=== PATIENT | male | born 1980 | race Caucasian/White ===

== ENCOUNTER 2020-12-10 22:24 | Emergency (ER) | payer SELFPAY ==
[~2020-12-10] VITALS: Ht 170.2 cm; Wt 84.0 kg
[2020-12-10 22:24] VITALS: BP 128/85
--- NOTE | 2020-12-10 22:37 | PHYS DOC ---
Past History Past Medical History Patient is a poor historian secondary to intoxication. Past Surgical History Patient is a poor historian secondary to intoxication Smoking: Non-smoker Alcohol Use: Occasionally Social History Patient is a poor historian secondary to intoxication General Adult EDM: Chief Complaint: Fall, syncope HPI: HPI: Patient is a 40 year old male that presents to the ED, via EMS, after a mechanical fall out of bed vs "passing out". Patient states approximately 30 minutes prior to arrival, the pt fell 3 feet out of bed. Patient is a poor histo carlitos secondary to intoxication with K2, which he used 1 hour prior to arrival. Patient is unclear of the events surrounding the fall, but denies hitting his head or LOC after the fall. Pt denies any neck pain or headaches. Patient was able to get up after falling and call EMS. Unknown how long he was on the floor, but he stated "not long." He states he just feels sleepy, and denies any chest pain, SOB, blurry vision, back pain, neck pain. No other complaints or symptoms at this time. Patient is a poor historian secondary to intoxication Review of Systems: Review of Systems: Constitutional: Denies fever or chills Eyes: Denies redness or eye pain HENT: Denies nasal congestion or sore throat Respiratory: Denies cough or shortness of breath Cardiovascular: Denies chest pain or palpitations GI: Denies abdominal pain, nausea, or vomiting Musculoskeletal: Denies neck pain Integument: Denies laceration Neurologic: Denies headache, focal weakness or sensory changes Patient is a poor historian secondary to intoxication Physical Exam: PE: Constitutional: Well developed, well nourished, no acute distress, non-toxic appearance HENT: Normocephalic, atraumatic. No reed sign. TMs clear, no otorrhea or rhinorrhea Eyes: PERRL, EOMI, conjunctiva normal, no discharge. No periorbital ecchymosis Neck: Normal range of motion, no midline tenderness, supple Lungs & Thorax: No respiratory distress, equal chest rise and fall Abdomen: Soft, no tenderness Skin: Warm, dry, no erythema, no rash Back: No tenderness, no CVA tenderness Extremities: No tenderness, ROM intact, no edema Neurologic: Alert and oriented X 3, normal motor function, normal sensory function, no focal deficits noted Psychologic: Affect flat EKG: EKG: Time: 2237 Impression: sinus rhythm, with a heart rate of 78 bmp. [place] interval of 146, and a QT/QTc of 406/451. Course & Med Decision Making: Course & Med Decision Making Pertinent Labs and Imaging studies reviewed. (See chart for details) Patient is a 40 year old male who presented to the ED after a fall from about 3 feet. Patient is a poor historian on arrival secondary to intoxication from K2. Plan to allow patient to be clinically sober and reassess. Labs obtained and posted to chart. Patient neurologically intact. No indication for imaging at this time. EKG stable. VS stable. Patient stable for discharge with outpatient follow-up with PCP. Discussed findings and plan with patient, who acknowledges understanding and agreement. Meenu Disclaimer: Meenu Disclaimer: This electronic medical record was generated, in whole or in part, using a voice recognition dictation system. Departure Departure: Impression: Primary Impression: Syncope Qualified Codes: R55 - Syncope and collapse Additional Impressions: Drug abuse Lactic acidosis Disposition: 01 DC HOME SELF CARE/HOMELESS Condition: IMPROVED Patient Instructions: Alcohol and Drug Addiction, Finding Treatment, Drug Abuse, FAQs, Lactic Acid, Lactate, Syncope, [id number]-Dayn SUSIE WILBURN DO Dec 10, 2020 22:37
[2020-12-10] MEDS ORDERED: IV NORMAL SALINE 1,000ML 1,000 ML IV ONE (22:45)
[2020-12-10 23:07] LABS: CALCIUM 8.8 mg/dL (8.5-10.1); GFR 83.6; POTASSIUM 3.4 mmol/L (3.5-5.1)
[2020-12-10 23:12] LABS: BASO # 0.1 x10^3/uL (0.0-0.2); BASO % 1 % (0-3); EOS # 0.2 x10^3/uL (0.0-0.7); EOS % 3 % (0-3); HEMATOCRIT 47.1 % (39.0-53.0); HEMOGLOBIN 16.8 g/dL (13.0-17.5); LYMPH % 35 % (24-48); MEAN CORPUSCULAR HEMOGLOBIN 31 pg (25-35); MEAN CORPUSCULAR HGB CONC 36 g/dL (31-37); MEAN CORPUSCULAR VOLUME 87 fL (79-100); MONO # 0.7 x10^3/uL (0.0-1.1); MONO % 9 % (0-9); NEUT # 4.6 x10^3uL (1.8-7.7); NEUT % 53 % (31-73); PLATELET COUNT 251 x10^3/uL (140-400); RED BLOOD COUNT 5.43 x10^6/uL (4.30-5.70); RED CELL DISTRIBUTION WIDTH 13.4 % (11.5-14.5); WHITE BLOOD COUNT 8.7 x10^3/uL (4.0-11.0)
[2020-12-10 23:23] LABS: ALBUMIN 4.1 g/dL (3.4-5.0); ALBUMIN/GLOBULIN RATIO 1.3 (1.0-1.7); MAGNESIUM 2.2 mg/dL (1.8-2.4); TOTAL BILIRUBIN 0.6 mg/dL (0.2-1.0); TOTAL PROTEIN 7.3 g/dL (6.4-8.2)
--- NOTE | 2020-12-10 23:27 | EKG ---
[address] [address] Test Date: 2020-12-10 Test Time: 22:38:33 Pat Name: AL TORRES Department: Room: Gender: M Wide [employer]: : 1980 Requested By: SUSIE WILBURN Order Number: [id number] Reading MD: Measurements Intervals [place] Rate: 73 P: 37 [place]: 146 QRS: 24 QRSD: 96 T: -1 QT: 406 QTc: 451 Interpretive Statements SINUS RHYTHM R-S TRANSITION ZONE IN V LEADS DISPLACED TO THE LEFT QRS(T) CONTOUR ABNORMALITY CONSIDER INFERIOR MYOCARDIAL DAMAGE POSSIBLY ABNORMAL ECG RI6.02 No previous ECG available for comparison
[2020-12-11 01:22] LABS: BILIRUBIN,URINE NEG (NEG); CLARITY,URINE CLEAR; COLOR,URINE YELLOW; GLUCOSE,URINE NEG (NEG); UROBILINOGEN,URINE 0.2 mg/dL (0.2 mg/dL)
[2020-12-11 01:23] LABS: BACTERIA,URINE 0 /HPF (0-FEW); BARBITURATES NEG (NEG); BENZODIAZEPINES NEG (NEG); CANNABINOIDS NEG (NEG); COCAINE NEG (NEG); METHADONE NEG (NEG); NITRITE,URINE NEG (NEG); OPIATES NEG (NEG); PHENCYCLIDINE NEG (NEG); RBC,URINE RARE /HPF (0-2); SQUAMOUS EPITHELIAL CELL,UR OCC /LPF; WBC,URINE RARE /HPF (0-4)
[2020-12-11 01:24] LABS: AMPHETAMINE/METHAMPHETAMINE NEG (NEG)
== END 2020-12-11 01:48 | disposition home or self-care (01) ==
LOC: ER 22:24
DX: R55 Syncope and collapse (principal); F12.10 Cannabis abuse, uncomplicated; E87.2 Acidosis; W06.XXXA Fall from bed, initial encounter; Y93.89 Activity, other specified; Y92.89 Other specified places as the place of occurrence of the external cause; Y99.8 Other external cause status
CPT/HCPCS: 36415; 80053; 80307; 81001; 82553; 83605; 83735; 84484; 85025; 93005; 96360; 99284; G0480; J7030

== ENCOUNTER 2021-01-13 17:48 | Emergency (ER) | payer OTHER ==
[~2021-01-13] VITALS: Ht 170.2 cm; Wt 84.0 kg
--- NOTE | 2021-01-13 18:30 | PHYS DOC ---
Past History Past Medical History: No Pertinent History (MANJIT LENZ APRN) Past Surgical History: No Surgical History (MANJIT LENZ APRN) Smoking: Non-smoker Alcohol Use: Occasionally Social History Narrative: K2 (MANJIT LENZ APRN) General Adult EDM: Chief Complaint: SUBSTANCE ABUSE HPI: HPI: Patient is a 40-year-old male who was found in the bathroom at the [facility] after ingesting K2. Patient states he remembers taking K2 and then being told EMS was coming to get him. Staff said that patient was being aggressive an d altered. Staff reports patient fell and hit his head. Patient is alert and oriented on arrival to the emergency room. Patient has an abrasion to his upper lip and right ear. Patient denies any pain. Patient denies any other health history (MANJIT LENZ APRN) Review of Systems: Review of Systems: Constitutional: Denies fever or chills Eyes: Denies change in visual acuity HENT: Denies nasal congestion or sore throat Respiratory: Denies cough or shortness of breath Cardiovascular: Denies chest pain or edema GI: Denies abdominal pain, nausea, vomiting, bloody stools or diarrhea : Denies dysuria Musculoskeletal: Denies back pain or joint pain Integument: Abrasion to upper lip and right ear Neurologic: Denies headache, focal weakness or sensory changes Endocrine: Denies polyuria or polydipsia Lymphatic: Denies swollen glands Psychiatric: Denies depression or anxiety (MANJIT LENZ APRN) Allergies: Allergies: Allergies Coded Allergies Type Severity Reaction Last Updated Verified No Known Drug Allergies 12/10/20 No (MANJIT LENZ APRN) Physical Exam: PE: Constitutional: Well developed, well nourished, no acute distress, non-toxic appearance. [] HENT: Normocephalic, atraumatic, bilateral external ears normal, oropharynx moist, no oral exudates, nose normal. [] Eyes: PERRLA, EOMI, conjunctiva normal, no discharge. [] Neck: Normal range of motion, no tenderness, supple, no stridor. [] Cardiovascular:Heart rate regular rhythm, no murmur [] Lungs & Thorax: Bilateral breath sounds clear to auscultation [] Abdomen: Bowel sounds normal, soft, no tenderness, no masses, no pulsatile masses. [] Skin: Warm, dry, abrasion upper lip, right ear Back: No tenderness, no CVA tenderness. [] Extremities: No tenderness, no cyanosis, no clubbing, ROM intact, no edema. [] Neurologic: Alert and oriented X 3, normal motor function, normal sensory function, no focal deficits noted. [] Psychologic: Affect normal, judgement normal, mood normal. [] (MANJIT LENZ APRN) Current Patient Data: Vital Signs: Vital Signs Date Time Temp Pulse Resp B/P (MAP) Pulse Ox O2 Delivery O2 Flow Rate FiO2 01/13/21 17:53 98.1 91 16 107/63 (78) 95 Room Air (MANJIT LENZ APRN) EKG: EKG: [] (MANJIT LENZ APRN) Radiology/Procedures: Radiology/Procedures: []XR CHEST 1V Clinical Indication: Reason: fall / Comparison: None. Findings: The cardiomediastinal silhouette is normal. Lungs are clear. There is no pneumothorax. No pleural effusion is appreciated. No acute bone abnormality. IMPRESSION: No acute cardiopulmonary process. Electronically signed by: Austen Garzon MD (01/13/2021 6:51 PM) [facility] Exam: CT head and cervical spine without contrast INDICATION: Fall TECHNIQUE: Sequential axial images through the head and cervical spine were obtained without the administration of IV contrast. Comparisons: None FINDINGS: Head: No focal parenchymal lesion or hemorrhage is identified. There is no midline shift or sulcal effacement. No acute vascular territory infarction is identified. Pham-white distinction is preserved. The ventricular system is within normal limits without compression hydrocephalus. The basal cisterns are well maintained. The visualized portions of the paranasal sinuses and mastoid air cells are well-pneumatized. No acute fractures. Cervical spine: Straightening of cervical spine which may positional. Vertebral body heights are well-maintained. Fracture to the cervical spine is not identified. No significant spondylotic change in cervical spine. Visualized paraspinal soft tissues are unremarkable. IMPRESSION: 1. No acute intracranial abnormality. 2. Negative CT C-spine for acute traumatic injury. Exposure: One or more of the following in the visualized dose reduction techniques were utilized for this examination: 1. Automated exposure control 2. Adjustment of the MA and/or KV according to patient size Use of iterative of reconstructive technique Electronically signed by: Karin Garcia MD (01/13/2021 6:55 PM) [facility] (MANJIT LENZ APRN) Heart Score: Risk Factors: Risk Factors: DM, Current or recent (<one month) smoker, HTN, HLP, family history of CAD, obesity. Risk Scores: Score 0 - 3: 2.5% MACE over next 6 weeks - Discharge Home Score 4 - 6: 20.3% MACE over next 6 weeks - Admit for Clinical Observation Score 7 - 10: 72.7% MACE over next 6 weeks - Early Invasive Strategies (MANJIT LENZ APRN) Course & Med Decision Making: Course & Med Decision Making Pertinent Labs and Imaging studies reviewed. (See chart for details) Patient is a 40-year-old male who was found in the bathroom at the [facility] after ingesting K2. Patient states he remembers taking K2 and then being told EMS was coming to get him. Staff said that patient was being aggressive and altered. Staff reports patient fell and hit his head. Patient is alert and oriented on arrival to the emergency room. Patient has an abrasion to his upper lip and right ear. Patient denies any pain. Patient denies any other health history Chest x-ray negative for any acute abnormalities. CT cervical spine and head negative for fracture or bleeding. Labs unremarkable. Patient discharged to home. Patient had an adverse reaction to using the substance K2. Patient is hemodynamically stable and all imaging and lab work are negative. Patient is able to ambulate on his own and is able to be discharged from the ER. Patient is told to return with worsening symptoms or concerns (MANJIT LENZ APRN) Course & Med Decision Making Did not see or evaluate patient. Agree with [facility]'s work-up and disposition per note. (ALLI DIAS MD) Dragon Disclaimer: Dragon Disclaimer: This electronic medical record was generated, in whole or in part, using a voice recognition dictation system. (MANJIT LENZ APRN) Departure Departure: Impression: Primary Impression: Overdose Qualified Codes: T50.904A - Poisoning by unspecified drugs, medicaments and biological substances, undetermined, initial encounter Disposition: 01 DC HOME SELF CARE/HOMELESS Condition: STABLE Referrals: PCP,NO (PCP) Patient Instructions: Overdose, Adult Additional Instructions: EMERGENCY DEPARTMENT GENERAL DISCHARGE INSTRUCTIONS Thank you for coming to [facility] (ED) today and trusting us with you care. We trust that you had a positivie experience in our Emergency Department. If you wish to speak to the department management, you may call the director at [phone]. YOUR FOLLOW UP INSTRUCTIONS ARE FOLLOWS: 1. Do you have a private Doctor? If you do not have a private doctor, please ask for a resource list of physicians or clinics that may be able to assist you with follow up care. 2. The Emergency Physician has interpreted your x-rays. The X-Ray specialist will also review them. If there is a change in the findings, you will be notified in 48 hours when at all possible. 3. A lab test or culture has been done, your results will be reviewed and you will be notified if you need a change in treatment. ADDITIONAL INSTRUCTIONS AND INFORMATION: 1. Your care today has been supervised by a physician who is specially trained in emergency care. Many problems require more than one evaluation for a complete diagnosis and treatment. We recommend that you schedule your follow up appointment as recommended to ensure complete treatment of you illness or injury. If you are unable to obtain follow up care and continue to have a problem, or if your condition worsens, we recommend that you return to the ED. 2. We are not able to safely determine your condition over the phone nor are we able to give sound medical advice over the phone. For these safety reasons, if you call for medical advice we will ask you to come to the ED for further evaluation. 3. If you have any questions regarding these discharge instructions please call the ED at [phone]. SAFETY INFORMATION: In the interest of safety, wellness, and injury prevention; we encourage you to wear your sealbelt, if you smoke; quite smoking, and we encourage family to use a protective helmet for bicycling and other sporting events that present an increased risk for head injury. IF YOUR SYMPTOMS WORSEN OR NEW SYMPTOMS DEVELOP, OR YOU HAVE CONCERNS ABOUT YOUR CONDITION; OR IF YOUR CONDITION WORSENS WHILE YOU ARE WAITING FOR YOUR FOLLOW UP APPOINTMENT; EITHER CONTACT YOUR PRIMARY CARE DOCTOR, THE PHYSICIAN WHOSE NAME AND NUMBER YOU WERE GIVEN, OR RETURN TO THE ED IMMEDIATELY. MANJIT LENZ APRN Jan 13, 2021 18:30 ALLI DIAS MD Jan 17, 2021 18:25
--- NOTE | 2021-01-13 18:54 | RAD ---
XR CHEST 1V Clinical Indication: Reason: fall / Comparison: None. Findings: The cardiomediastinal silhouette is normal. Lungs are clear. There is no pneumothorax. No pleural eff usion is appreciated. No acute bone abnormality. IMPRESSION: No acute cardiopulmonary process. Electronically signed by: Austen Garzon MD (01/13/2021 6:51 PM) [facility]
--- NOTE | 2021-01-13 18:57 | RAD ---
Exam: CT head and cervical spine without contrast INDICATION: Fall TECHNIQUE: Sequential axial images through the head and cervical spine were obtained without the admi nistration of IV contrast. Comparisons: None FINDINGS: Head: No focal parenchymal lesion or hemorrhage is identified. There is no midline shift or sulcal effaceme nt. No acute vascular territory infarction is identified. Pham-white distinction is preserved. The ventricular system is within normal limits without compression hydrocephalus. The basal cisterns are well maintained. The visualized portions of the paranasal sinuses and mastoid air cells are well-pneumatized. No acute fractures. Cervical spine: Straightening of cervical spine which may positional. Vertebral body heights are well-maintained. Fracture to the cervical spine is not identified. No significant spondylotic change in cervical spine. Visualized paraspinal soft tissues are unremarkable. IMPRESSION: 1. No acute intracranial abnormality. 2. Negative CT C-spine for acute traumatic injury. Exposure: One or more of the following in the visualized dose reduction techniques were utilized for this examination: 1. Automated exposure control 2. Adjustment of the MA and/or KV according to patient size Use of iterative of reconstructive technique Electronically signed by: Karin Garcia MD (01/13/2021 6:55 PM) [id number]
[2021-01-13 19:06] LABS: BASO # 0.1 x10^3/uL (0.0-0.2); BASO % 1 % (0-3); EOS # 0.3 x10^3/uL (0.0-0.7); EOS % 4 % (0-3); HEMATOCRIT 45.3 % (39.0-53.0); HEMOGLOBIN 15.6 g/dL (13.0-17.5); LYMPH # 1.1 x10^3/uL (1.0-4.8); LYMPH % 19 % (24-48); MEAN CORPUSCULAR HEMOGLOBIN 31 pg (25-35); MEAN CORPUSCULAR HGB CONC 35 g/dL (31-37); MEAN CORPUSCULAR VOLUME 89 fL (79-100); MONO # 0.6 x10^3/uL (0.0-1.1); MONO % 10 % (0-9); NEUT % 66 % (31-73); PLATELET COUNT 201 x10^3/uL (140-400); RED CELL DISTRIBUTION WIDTH 13.1 % (11.5-14.5); WHITE BLOOD COUNT 6.1 x10^3/uL (4.0-11.0)
[2021-01-13 19:15] LABS: CALCIUM 8.7 mg/dL (8.5-10.1); CREATININE 1.1 mg/dL (0.7-1.3); GFR 74.9; POTASSIUM 3.8 mmol/L (3.5-5.1)
[2021-01-13 21:15] VITALS: BP 112/68
== END 2021-01-13 21:13 | disposition home or self-care (01) ==
LOC: EDBD 17:48 → ER 17:48
DX: T40.7X1A Poisoning by cannabis (derivatives), accidental (unintentional), initial encounter (principal); S00.511A Abrasion of lip, initial encounter; S00.411A Abrasion of right ear, initial encounter; R41.82 Altered mental status, unspecified; F91.1 Conduct disorder, childhood-onset type; Y92.89 Other specified places as the place of occurrence of the external cause; W01.198A Fall on same level from slipping, tripping and stumbling with subsequent striking against other object, initial encounter; Y93.89 Activity, other specified; Y99.8 Other external cause status
CPT/HCPCS: 36415; 70450; 71045; 72125; 80048; 85025; 99285-25